=== PATIENT | male | born 1975 ===

== ENCOUNTER 2017-05-03 09:11 | Emergency (ER) | payer MEDICAID, OTHER ==
[2017-05-03 09:22] VITALS: BMI 32.5
[2017-05-03 09:23] VITALS: BP 155/100; PULSE 70; RESP 18; TEMP 97.8; O2SAT 97
--- NOTE | 2017-05-03 09:32 | C.PDOC ---
History Of Present Illness 41 yr old male presents to the ER with complaints of decreased hearing in the right ear for the past several days. Patient denies trauma, foreign body sensations, ear discharge, fever or neck pain. R EAR DECREASED HEARING X SEV DAYS. NO PAIN, DC, FEVER. DENIES FB, TRAUMA OTHER ASSOC SX EXAM NAD HEENT L TM NEG. R EAR +IMPACTED CERUMEN. NO ERYTHEMA, SWELLING. REMAINDER NEG Time Seen by Provider: 05/03/17 09:21 History Per: Patient History/Exam Limitations: None Onset/Duration Of Symptoms: Days (Several days) Past Medical History Reviewed: Historical Data, Nursing Documentation, Vital Signs Vital Signs: Last Vital Signs Temp 97.8 F 05/03/17 09:22 Pulse 70 05/03/17 09:22 Resp 18 05/03/17 09:22 BP 155/100 H 05/03/17 09:22 Pulse Ox 97 05/03/17 09:34 Family History: States: No Known Family Hx Review Of Systems Except As Marked, All Systems Reviewed And Found Negative. Constitutional: Negative for: Fever ENT: Positive for: Other ((+) Decreased hearing in right ear). Negative for: Ear Discharge Musculoskeletal: Negative for: Neck Pain Physical Exam - Physical Exam Appears: Non-toxic, No Acute Distress Skin: Warm, Dry, No Rash Head: Atraumatic, Normacephalic Ear(s): Left: Normal, Right: Other (Impacted cerumen. No erythema. No swelling.) Oral Mucosa: Moist Throat: Normal, No Erythema, No Exudate, No Drooling Neck: Normal, Normal ROM, Supple Extremity: Normal ROM, No Swelling Neurological/Psych: Oriented x3, Normal Speech, Normal Motor ED Course And Treatment O2 Sat by Pulse Oximetry: 97 (RA) Pulse Ox Interpretation: Normal Disposition Counseled Patient/Family Regarding: Diagnosis, Need For Followup - Disposition Referrals: [facility] [Outside] [facility] [Outside] Disposition: HOME/ ROUTINE Disposition Time: 09:26 Condition: GOOD Instructions: Triethanolamine Polypeptide Oleate (Into the ear), Cerumen Impaction (ED) Forms: [employer] (Persian) - Clinical Impression Clinical Impression: Cerumen impaction - Scribe Statement The provider has reviewed the documentation as recorded by the Kevin Grant Provider Attestation: All medical record entries made by the Scribe were at my direction and personally dictated by me. I have reviewed the chart and agree that the record accurately reflects my personal performance of the history, physical exam, medical decision making, and the department course for this patient. I have also personally directed, reviewed, and agree with the discharge instructions and disposition.
== END 2017-05-03 10:12 | disposition home or self-care (01) ==
LOC: C.ER 09:11
DX: H61.21 Impacted cerumen, right ear (principal)